=== PATIENT | female | born 1980 | race Native Hawaiian/Other Pacific Islander ===

== ENCOUNTER 2020-08-01 13:51 | Emergency (ER) | payer OTHER ==
[~2020-08-01] VITALS: Ht 160 cm; Wt 62.6 kg
--- NOTE | 2020-08-01 14:21 | NUR ---
NASAL SWAB SPECIMEN SENT TO LAB.
[2020-08-01 14:28] VITALS: BP 124/88
--- NOTE | 2020-08-01 15:05 | NUR ---
Received telephone call from lab stating pt's COVID-19 test is positive. Called pt at the number provided by pt ([phone]), there was no answer.
== END 2020-08-01 14:29 | disposition home or self-care (01) ==
LOC: ER 13:51
DX: U07.1 COVID-19 (principal)
CPT/HCPCS: A4663